=== PATIENT | male | born 1940 | race Caucasian/White ===

== ENCOUNTER 2016-10-24 10:21 | Day surgery (SDC) | payer MEDICARE, OTHER ==
--- NOTE | ~2016-10-24 | EGD ---
EGD REPORT [facility] [address] [address] NAME: NIDA VALLE : [birth year] STATUS : REG [facility]#: [id number] AGE: 76 ADM/REG DATE : 10/24/16 MR#: [id number] REPORT SERV DATE: 10/24/16 DICTATED BY: TINA ELLISON DATE: 10/24/16 REPORT STATUS : Draft [facility]ANSCRIBED BY: [facility] DATE: 10/24/16 Pulmonology Patient Name: Nida Valle Procedure Date: 10/24/2016 12:33 PM Date of : 1940 Attending MD: SHAZIA ELLISON MD Procedure Date No Time: 10/24/2016 Procedure: EBUS Bronchoscopy Indications: Mediastinal adenopathy Providers: SHAZIA ELLISON MD Referring MD: Antolin Lane Medicines: Lidocaine 2% 20 mL Complications: No immediate complications Procedure: Pre-Anesthesia Assessment: - ASA Grade Assessment: III - A patient with severe systemic disease. - A History and Physical has been performed. Patient meds and allergies have been reviewed. The risks and benefits of the procedure and the sedation options and risks were discussed with the patient. All questions were answered and informed consent was obtained. Patient identification and proposed procedure were verified prior to the procedure by the physician and the nurse in the pre-procedure area in the procedure room. Mental Status Examination: normal. Respiratory Examination: clear to auscultation. CV Examination: normal and RRR, no murmurs, no S3 or S4. ASA Grade Assessment: IV - A patient with severe systemic disease that is a constant threat to life. After reviewing the risks and benefits, the patient was deemed in satisfactory condition to undergo the procedure. The anesthesia plan was to use general anesthesia. Immediately prior to administration of medications, the patient was re-assessed for adequacy to receive sedatives. The heart rate, respiratory rate, oxygen saturations, blood pressure, adequacy of pulmonary ventilation, and response to care were monitored throughout the procedure. The physical status of the patient was re-assessed after the procedure. After obtaining informed consent, the Bronchoscope was introduced through the mouth, via laryngeal mask airway and advanced to the tracheobronchial tree. the BF [id number] was introduced through the mouth, via laryngeal mask airway and advanced to the tracheobronchial tree. The procedure was accomplished without difficulty. The patient tolerated the procedure EGD REPORT [address] [place]. [address] NAME: NIDA VALLE : [birth year] STATUS : REG [facility] PAT#: [id number] AGE: 76 ADM/REG DATE : 10/24/16 MR#: [id number] REPORT SERV DATE: 10/24/16 DICTATED BY: TINA ELLISON DATE: 10/24/16 REPORT STATUS : Draft TRANSCRIBED BY: [facility] DATE: 10/24/16 well. Findings: The laryngeal mask airway is in normal position. The vocal cords move normally with breathing. The subglottic space is normal. The trachea is of normal caliber. The jeffrey is sharp. The tracheobronchial tree was examined to at least the first subsegmental level. Prior RUL lobectomy staple line intact. No evidence of endobronchial lesions. EBUS TBNA of lymph node level 11L x 6 passes for cytology EBUS TBNA of lymph node level 7 x 4 passes for cytology EBUS TBNA of high right mediastinal lymph node 1R x 7 passes for cytology Impression: Rapid On-Site Evaluation (JOSE ENRIQUE): Preliminary cytology is suggestive of a benign lesion (final results are pending). No malignancy seen. Recommendation: - Await test results. - Chest X-ray post-procedure. - Follow up with referring physician as previously scheduled. Attending Participation: I personally performed the entire procedure. SHAZIA ELLISON MD 10/24/2016 1:32 PM This report has been signed electronically. Number of Addenda: 0 Note Initiated On: 10/24/2016 12:33 PM [address] [address]
[~2016-10-24 10:21] MED LIST: ASAB PO; BEVESPI INH; COMP10B PO; CYANO1000T PO; DURA75 TOP; ENDOCET1 TA3 PO; FERROUS SULF325 M1 PO; FLOMAX4 PO; HCTZ25B PO; LOP25 PO; NORV10 PO; SENTAB PO; ULTRAM50 PO; XARELTO20 MG PO; ZESTRIL20 MG PO
[2016-10-24 10:45] LABS: BASOPHILS 0.1 %; BASOPHILS ABSOLUTE 0.01 10/3/uL (0.0-0.16); EOSINOPHILS 2.1 %; EOSINOPHILS ABSOLUTE 0.14 10/3/uL (0.0-0.53); HEMATOCRIT 29.6 % (40.0-51.0); IMMATURE GRANULOCYTES 0.3 %; IMMATURE GRANULOCYTES ABSOLUTE 0.02 10/3/uL (0.0-0.11); LYMPHOCYTES 8.6 %; LYMPHOCYTES ABSOLUTE 0.58 10/3/uL (0.67-4.30); MEAN CORPUS HGB CONC 33.8 g/dL (32.0-36.0); MEAN CORPUSCULAR HEMOGLOB 28.7 pg (26.0-34.0); MEAN CORPUSCULAR VOLUME 84.8 fL (80-100); MEAN PLATELET VOLUME 8.6 fL (9.2-13.0); MONOCYTES 8.8 %; MONOCYTES ABSOLUTE 0.59 10/3/uL (0.21-1.20); NEUTROPHILS 80.1 %; NEUTROPHILS ABSOLUTE 5.39 10/3/uL (2.02-8.40); PLATELET COUNT 268 10/3/uL (150-400); RBC DISTRIBUTION WIDTH 15.6 % (12.0-16.0); RED CELL COUNT 3.49 10/6/uL (4.7-6.1); WHITE BLOOD CELLS 6.7 10/3/uL (4.5-10.5)
[2016-10-24 10:47] LABS: MANUAL DIFF NO %
[2016-10-24 10:50] LABS: PARTIAL THROMBO TIME 30.3 SEC (22.5-37.2); PROTIME (NOT ORD) 13.5 SEC (12.0-14.5)
[2016-10-24 11:07] LABS: BUN (BLOOD UREA NITROGEN) 23 MG/DL (6-23); CALCIUM, SERUM 9.1 MG/DL (8.5-10.4); CHLORIDE, SERUM 95 MMOL/L (96-112); CO2 (CARBON DIOXIDE) 28 MMOL/L (24-34); CREATININE 1.33 MG/DL (0.70-1.30); GFR AFRICAN AMERICAN 61 ML/MIN (>=60); GFR NON AFRICAN AMERICAN 52 ML/MIN (>=60); GLUCOSE, SERUM 110 MG/DL (60-99); POTASSIUM, SERUM 4.6 MMOL/L (3.5-5.3); SODIUM, SERUM 128 MMOL/L (135-148)
== END 2016-10-24 15:31 | disposition home or self-care (01) ==
LOC: DMU 10:21
PROVIDERS: Anesthesiology; Internal Medicine
PROC: 07B74ZX Excision of Thorax Lymphatic, Percutaneous Endoscopic Approach, Diagnostic (ICD-10-PCS; principal; 2016-10-24 12:00)
DX: R59.0 Localized enlarged lymph nodes (principal); I25.2 Old myocardial infarction; I10 Essential (primary) hypertension; I48.0 Paroxysmal atrial fibrillation; D86.9 Sarcoidosis, unspecified; D64.9 Anemia, unspecified; Z95.5 Presence of coronary angioplasty implant and graft; Z87.891 Personal history of nicotine dependence; Z98.890 Other specified postprocedural states
CPT/HCPCS: 71010; 80048; 85025; 85610; 85730; 88172; 88173; 88305; 93005; A9270-GY; C1725; J2405; J3010